=== PATIENT | female | born 1970 | race Caucasian/White ===

== ENCOUNTER 2019-01-06 05:27 | Day surgery (SDC) | payer OTHER ==
[2019-01-03 12:02] VITALS: BMI 20.6
[2019-01-06] MEDS ORDERED: ONDANSETRON 4 MG/2 ML VIAL IVPUSH PRN (13:53)
[2019-01-06] MEDS ORDERED: oxyCODONE HCL 5 MG TABLET PO PRN ×2 (13:53)
[2019-01-06] MEDS ORDERED: LACTATED RINGERS SOLUTION 1,000 ML IV SCH (14:00)
[2019-01-06] MEDS ORDERED: MIDAZOLAM HCL 2 MG/2 ML SINGLE DOSE VIAL ONE ×2 (14:26)
[2019-01-06] MEDS ORDERED: BUPIVACAINE HCL/PF 0.5% (5MG/ML) 10 ML VIAL ONE (14:28)
[2019-01-06] MEDS ORDERED: DEXAMETHASONE SOD PHOSPHATE/PF 10 MG/ML SDV ONE (14:29)
[2019-01-06] MEDS ORDERED: PROPOFOL 20 ML ONE ×2 (14:37)
[2019-01-06] MEDS ORDERED: ceFAZolin SODIUM 1 GM VIAL IVPB ONE ×2 (14:41→18:30)
[2019-01-06] MEDS ORDERED: ceFAZolin SODIUM 1 GM VIAL ONE ×2 (14:49→14:50)
--- NOTE | 2019-01-06 14:52 | HP ---
Satellite H - Chief Complaint Chief Complaint: right elbow fx - Past Medical History Allergies/Adverse Reactions: Allergies Allergy/AdvReac Type Severity Reaction Status Date / Time NSAIDS (Non-Steroidal AdvReac Severe Gastric Verified 01/06/19 13:56 Anti-Inflamma Bleed ...LMP: 12/20/18 - Current Medications Current Medications: Home Medications Medication Instructions Recorded Acetaminophen [Tylenol] 650 mg PO PRN 01/03/19 Oxycodone HCl/Acetaminophen 1 - 2 tab PO Q6H #30 tab MDD 6 01/06/19 [Percocet 5-325 mg Tablet] Satellite Physical Exam - Physical Examination Vital Signs: Vital Signs Period Temp Pulse Resp BP Sys/Tamayo Pulse Ox Last 24 Hr 98.7 F-98.7 F 75-75 20-20 98-98/60-60 96 General Appearance: Well Nourished, Well Developed, Alert & Oriented x3 ENT: Clear Lung: Normal air movement Heart: Regular rate & rhythm Extremities: Other (right elbow- + swelling, + ttp, decr rom, nvi, xrays show displaced olecranon fx) Neurological: Intact, Alert, Oriented Satellite Impression/Plan - Impression/Plan Impression: right olecranon fx Operative Procedure: right olecranon orif Date to be Performed: 01/06/19
--- NOTE | 2019-01-06 15:51 | OP ---
Operative Note - Note: Operative Date: 01/06/19 ([facility]) Pre-Operative Diagnosis: right olecranon fx Operation: right olecranon orif Post-Operative Diagnosis: Same as Pre-op Surgeon: Paul Clifford Contract Technical Writer: Hussein Hayes Anesthesiologist/ORTHODONTIST: Selam Medellin Anesthesia: General, Local Estimated Blood Loss (mls): 5 (tourniquet) Operative Report Dictated: Yes
[2019-01-06] MEDS ORDERED: ACETAMINOPHEN INJECTION 100 ML IVPB ONE (15:56)
[2019-01-06] MEDS ORDERED: CEFAZOLIN 1 GM in DEXTROSE 5%-WATER - 50 ML IVPB ONE (16:30)
[2019-01-06] MEDS ORDERED: oxyCODONE HCL 5 MG TABLET PO ONE (18:00)
[2019-01-06 18:02] VITALS: BP 101/61; PULSE 69; TEMP 97.9
[2019-01-06] MEDS ORDERED: oxyCODONE HCL 5 MG TABLET ONE (18:04)
[2019-01-06] MEDS ORDERED: METOCLOPRAMIDE HCL INJECTION 10 MG/2 ML VIAL IVPUSH ONE (18:15)
[2019-01-06] MEDS ORDERED: CEFAZOLIN 1 GM/D5W 1 GM/50 ML BAG ONE (18:24)
[2019-01-06] MEDS ORDERED: METOCLOPRAMIDE HCL INJECTION 10 MG/2 ML VIAL ONE (18:35)
--- NOTE | 2019-01-06 23:07 | OP ---
DATE OF OPERATION: 01/06/2019 PREOPERATIVE DIAGNOSIS: Displaced right olecranon fracture. POSTOPERATIVE DIAGNOSIS: Displaced right olecranon fracture. PROCEDURE: Open reduction and internal fixation, right olecranon fracture. SURGICAL ATTENDING: Paul Clifford MD ANESTHESIA: Regional and general. CLOSURE: Two 0.0625 K-wires and an AO cerclage wire for fracture, 2-0 subcutaneous, and aneesh for skin. ESTIMATED BLOOD LOSS: Negligible. TOURNIQUET TIME: Approximately 45 minutes. COMPLICATIONS: None. CONDITION: Recovery in stable condition. DESCRIPTION OF PROCEDURE: Patient taken to the operating room on January 06, 2019. General anesthesia and regional anesthesia were then administered by anesthesiologist. IV Kefzol administered prophylactically prior to the case. A well-padded pneumatic tourniquet was placed on the right proximal arm. The right upper extremity was prepped and draped in the usual sterile fashion. The arm was exsanguinated with an Esmarch bandage. Tourniquet was inflated to 250 mmHg. An 8- to 10-cm longitudinal incision over the border of the ulna was incised. Hemostasis achieved with Bovie cautery. Full-thickness dissection was carried down to the level of the extensor mechanism of the ulna with sufficient flaps to perform the procedure. Curettes and irrigation were used to clean out the fracture site and remove any primitive healing and clot. The proximal olecranon piece was 1 major piece with then some comminution on the more-radial side. A drill hole was drilled distally in the ulnar shaft. A pointed reduction clamp was used to obtain an anatomical reduction of the fracture. Two 0.0625 K-wires were drilled from the tip of the olecranon, past the fracture, into the intramedullary canal of the ulna. Proper placement was confirmed on the AP and lateral plane which was seen with image intensifier. An AO cerclage wire was placed around the pins, and through a drill hole distally past the fracture site with the arm in extension. The tension was applied through the AO tensioner, and the wire was crimped into place. The 2 wires were cut short, bent, and then malleted so that the tips were over the wire and embedded in the bone. X-ray revealed excellent anatomic reduction of the fracture with excellent placement of the hardware. The elbow was taken through a range of motion, found to go into full extension, full flexion with excellent pronation and supination. The incision was irrigated, irrigation. The periosteum was tacked back, and the fascia gently closed with 2-0 Vicryl, as was the subcutaneous with 2-0 Vicryl, and aneesh for the skin. A sterile pressure dressing, followed by a posterior splint was applied. Tourniquet was deflated. Total tourniquet time was approximately 45 minutes. No complications. PAUL CLIFFORD M.D. [id number]
--- NOTE | 2019-01-06 23:13 | OP ---
DATE OF OPERATION: 01/06/2019 ADDENDUM SURGEON: Paul Clifford MD [employer] DEPARTMENT SUPERVISOR: PONCHO Granados M.D. [id number]
== END 2019-01-06 19:45 | disposition home or self-care (01) ==
LOC: JASU-SURG 05:27
PROVIDERS: ATTEND Orthopaedic Surgery
PROC: 0PSK04Z Reposition Right Ulna with Internal Fixation Device, Open Approach (ICD-10-PCS; principal; 2019-01-06 14:30)
DX: S52.021A Displaced fracture of olecranon process without intraarticular extension of right ulna, initial encounter for closed fracture (principal); X58.XXXA Exposure to other specified factors, initial encounter; Y93.89 Activity, other specified; Y92.9 Unspecified place or not applicable; Y99.9 Unspecified external cause status
CPT/HCPCS: 24685; C1713; 76000-TC-FY; 84703; 94760; J0131

== ENCOUNTER 2019-04-18 05:08 | Day surgery (SDC) | payer OTHER ==
[2019-04-17 09:54] VITALS: BMI 20.9
--- NOTE | 2019-04-18 09:26 | HP ---
Satellite H - Chief Complaint Chief Complaint: right elbow pain s/p orif - Past Medical History Allergies/Adverse Reactions: Allergies Allergy/AdvReac Type Severity Reaction Status Date / Time NSAIDS (Non-Steroidal AdvReac Severe Gastric Verified 04/17/19 09:54 Anti-Inflamma Bleed ...LMP: 03/28/19 - Current Medications Current Medications: Home Medications Medication Instructions Recorded Acetaminophen [Tylenol] 650 mg PO PRN 01/03/19 Oxycodone HCl/Acetaminophen 1 - 2 tab PO Q6H #30 tab MDD 6 04/18/19 [Percocet 5-325 mg Tablet] Satellite Physical Exam - Physical Examination General Appearance: Well Nourished, Well Developed, Alert & Oriented x3 ENT: Clear Lung: Normal air movement Heart: Regular rate & rhythm Extremities: Other (right elbow- well healed incision, limited rom , nvi) Neurological: Intact, Alert, Oriented Satellite Impression/Plan - Impression/Plan Impression: right elbow s/p olecranon orif with painful hardware Operative Procedure: right elbow removal of MARIA C mejia Date to be Performed: 04/18/19
[2019-04-18] MEDS ORDERED: MIDAZOLAM HCL 2 MG/2 ML SINGLE DOSE VIAL ONE (11:23)
[2019-04-18] MEDS ORDERED: PROPOFOL 20 ML ONE (11:23)
[2019-04-18] MEDS ORDERED: ONDANSETRON 4 MG/2 ML VIAL IVPUSH PRN (11:33)
[2019-04-18] MEDS ORDERED: ACETAMINOPHEN 500 MG TABLET (FP) PO PRN (11:33)
[2019-04-18] MEDS ORDERED: oxyCODONE HCL 5 MG TABLET PO PRN (11:33)
[2019-04-18] MEDS ORDERED: LACTATED RINGERS SOLUTION 1,000 ML IV SCH (11:45)
[2019-04-18] MEDS ORDERED: ceFAZolin SODIUM 1 GM VIAL ONE (12:00)
[2019-04-18] MEDS ORDERED: ceFAZolin SODIUM 1 GM VIAL IVPB ONE (12:00)
[2019-04-18] MEDS ORDERED: ACETAMINOPHEN INJECTION 100 ML IVPB ONE (12:44)
[2019-04-18] MEDS ORDERED: ACETAMINOPHEN 1000 MG/100 ML VIAL (NON FORMULARY) IVPB ONE (12:50)
--- NOTE | 2019-04-18 12:57 | OP ---
Operative Note - Note: Operative Date: 04/18/19 Pre-Operative Diagnosis: PAINFULL HARDWARE RIGHT ELBOW Operation: REMOVAL OF HARDWARE AND MANIPULATION UNDER ANESTHESIA RIGHT ELBOW Post-Operative Diagnosis: Same as Pre-op Surgeon: Paul Clifford Anesthesia: General Estimated Blood Loss (mls): 0 Operative Report Dictated: Yes
[2019-04-18 14:42] VITALS: TEMP 97.7
[2019-04-18] MEDS ORDERED: oxyCODONE HCL 5 MG TABLET ONE (15:49)
[2019-04-18] MEDS ORDERED: oxyCODONE HCL 5 MG TABLET PO ONE (15:55)
[2019-04-18 17:54] VITALS: BP 113/67; PULSE 62
--- NOTE | 2019-04-18 21:04 | OP ---
DATE OF OPERATION: 04/18/2019 PREOPERATIVE DIAGNOSIS: Stiffness and painful hardware, right elbow. POSTOPERATIVE DIAGNOSIS: Stiffness and painful hardware, right elbow. PROCEDURE: Manipulation under anesthesia and removal of hardware, right elbow. SURGICAL ATTENDING: Paul Clifford MD ANESTHESIA: General. CLOSURE: 2-0 Vicryl subcutaneous, 3-0 nylon horizontal mattress for skin. ESTIMATED BLOOD LOSS: Negligible. COMPLICATIONS: None. CONDITION: To recovery in stable condition. DESCRIPTION OF OPERATIVE PROCEDURE: Patient was taken to the operating room on April 18, 2019. LMA was administered by the anesthesiologist. Right upper extremity was prepped and draped in the usual sterile fashion. Prior to the procedure, manipulation was performed, and with minimal effort, the effort regained 140 degrees of flexion and lacked about 5-7 degrees of extension and had full pronation, supination. Next, the removal of hardware portion of the case was performed. A 3- to 4-cm longitudinal incision utilizing the previously made incision over the tip of the olecranon was incised. Hemostasis was achieved with Bovie cautery. Sharp dissection was carried down to the level of the hardware, and the 2 K-wires were pulled with needle nose pliers. The knot in the AO wire was unbent and allowed the 2 limbs to separate. They were pulled close to the bone and cut flush, and the middle portion of the wire was then pulled out retrieving the entire [id number] tension band wire. The wound was irrigated out with copious amounts of irrigation. The subcutaneous was closed with 2-0 Vicryl, and 3-0 nylon and horizontal mattress were used to close the skin. A sterile pressure dressing was applied followed by a sling. The patient was awakened from anesthesia and transferred to recovery in stable condition. No complications. Estimated blood loss negligible. Samuel [id number]
--- NOTE | 2019-04-21 17:50 | PATH ---
Surgical Pathology Report Patient Name: MICHELLE SEGURA [facility]. Rec. #: [id number] /Age/Gender: 1970 (Age: 48) / F Account: [id number] Location: [facility] SURGICAL Taken: 04/18/2019 Received: 04/18/2019 Reported: 04/21/2019 Physicians: Paul Clifford M.D. Specimen(s) Received REMOVAL OF HARDWARE Clinical History Right elbow fracture Final Diagnosis HARDWARE, ELBOW, RIGHT, REMOVAL: SURGICAL HARDWARE. MACROSCOPIC DIAGNOSIS. Electronically Signed Alicia Bautista M.D. Gross Description Received fresh labeled "removal of hardware" are multiple pieces of curved and bent wires ranging in size from 0.8-7 cm in length with luminal diameter of 0.1 and 0.2 cm. No soft tissue identified, for gross examination only. MLSZ/04/18/2019 sanml/04/18/2019
== END 2019-04-18 17:40 | disposition home or self-care (01) ==
LOC: JASU-SURG 05:08
PROVIDERS: ATTEND Orthopaedic Surgery
PROC: 0RSLXZZ Reposition Right Elbow Joint, External Approach (ICD-10-PCS; 2019-04-18)
PROC: 0RPL04Z Removal of Internal Fixation Device from Right Elbow Joint, Open Approach (ICD-10-PCS; principal; 2019-04-18 12:30)
DX: T84.84XA Pain due to internal orthopedic prosthetic devices, implants and grafts, initial encounter (principal); M25.621 Stiffness of right elbow, not elsewhere classified; Y79.8 Miscellaneous orthopedic devices associated with adverse incidents, not elsewhere classified; Y92.9 Unspecified place or not applicable
CPT/HCPCS: 88300-TC; 94760; J0131